=== PATIENT | female | born 1960 | race Two or more races ===

== ENCOUNTER 2024-09-29 06:30 | Day surgery (SDC) | payer BC, SELFPAY ==
--- NOTE | 2024-09-26 07:00 | EKG_ITS ---
[facility] Test Date: 2024-09-26 Pat Name: JAZLYN HAAS Department: Room: - Gender: Female Banquet Director: RT STUDENT : 1960 Requested By: Cinthia Ho Order Number: [id number] Reading MD: Cinthia Ho Measurements Intervals Butler Rate: 79 P: 35 AR: 162 QRS: 37 QRSD: 100 T: 31 QT: 382 QTc: 440 Interpretive Statements SINUS RHYTHM LOW QRS VOLTAGE IN PRECORDIAL LEADS [QRS DEFLECTION < 1.0 mV IN CHEST LEADS] POSSIBLE ANTERIOR MYOCARDIAL INFARCTION , OF INDETERMINATE AGE [30 ms Q WAVE IN V3/V4, OR R < 0.2 mV IN V4] No previous ECG available for comparison /[id number]
[2024-09-26 09:28] VITALS: BMI 32.5
[2024-09-29] VITALS (10 sets, daily range): BP systolic 103–132; BP diastolic 53–73; PULSE 65–78; RESP 11–20; TEMP 36.2–36.3; O2SAT 94–99; BMI 35.2
[2024-09-29 07:41] LABS: Basophils # (Auto) 0.1 Thou/mm3 (0.0-0.2); Basophils % (Auto) 1 % (0-2.5); Eosinophils # (Auto) 0.3 Thou/mm3 (0.0-0.5); Eosinophils % (Auto) 4 % (0-10); Hematocrit 36.5 % (36.0-46.0); Hemoglobin 12.2 g/dL (12.0-16.0); Immature Granulocytes % (Auto) 0 % (0-0); Immature Granulocytes Auto 0.02 Thou/mm3 (0.00-0.00); Lymphocytes # (Auto) 3.6 Thou/mm3 (1.0-4.8); Lymphocytes % (Auto) 46 % (10-50); Mean Corpuscular HGB Conc 33.4 g/dl (31.0-37.0); Mean Corpuscular Hemoglobin 31.4 pg (25.0-35.0); Mean Corpuscular Volume 94 fL (80-100); Monocytes % (Auto) 13 % (0-12); Neutrophils # (Auto) 2.8 Thou/mm3 (1.8-7.7); Neutrophils % (Auto) 36 % (37-80); Nucleated Red Blood Cell % 0 /100 WBC (0); Platelet Count 312 Thou/mm3 (140-440); RDW Standard Deviation 41.7 fL (36.4-46.3); Red Blood Count 3.89 Miln/mm3 (4.00-5.20); White Blood Count 7.8 Thou/mm3 (3.6-11.0)
[2024-09-29 07:44] LABS: Anion Gap 7 (7-16); BUN/Creatinine Ratio 14 Ratio (12-20); Blood Urea Nitrogen 11 mg/dL (9-23); Calcium 9.1 mg/dL (8.3-10.6); Carbon Dioxide 28.2 mMol/L (20.0-31.0); Chloride 104 mMol/L (98-107); Creatinine (Component) 0.8 mg/dL (0.6-1.3); Estimated Creatinine Clearance 67.3 mL/min (>60); Glucose 126 mg/dL (74-106); Osmolality,Calculated 278 (275-295); Potassium 3.9 mMol/L (3.4-5.1); Sodium 139 mMol/L (136-145); eGFR > 60 See Note
[2024-09-29 08:37] LABS: INR 0.9 (0.9-1.3); Partial Thromboplastin Time 21.9 Seconds (22.0-36.0); Prothrombin Time 10.2 Seconds (9.0-12.2)
[2024-09-29] MEDS: HYDROcodone/APAP 5/325 TABLET 1 TAB PO (08:50)
--- NOTE | 2024-10-01 16:03 | ESOP_ITS ---
RE: JAZLYN HAAS : 1960 DATE OF OPERATION: 09/29/2024 PROCEDURE PERFORMED: 1. Diagnostic right and left heart cardiac catheterization, selective coronary angiogram, left ventricular angiogram, CPT 71316. 2. Ultrasound-guided access, right radial artery. 3. Conscious sedation for 30-minute duration. DIAGNOSES: Cardiomyopathy, congestive heart failure, angina pectoris, abnormal stress test, shortness of breath. HISTORY AND INDICATIONS: The patient is a 64-year-old female with a past medical history of hypertension, fibromyalgia, hypercholesterolemia, has been having recurrent shortness of breath, severe shortness of breath with minimal exertion, chest tightness. Cardiac stress test and nuclear scan is abnormal. Also evidence of possible pulmonary hypertension right and left heart catheterization. Coronary angiogram is recommended to assess the patient is a candidate for coronary intervention and revascularization. DESCRIPTION OF PROCEDURE: The patient was brought to cardiac catheterization laboratory where she was given 2 mg Versed and 100 mcg of fentanyl for sedation. The right radial approach was taken for left heart catheterization. The right radial artery was cannulated with micropuncture technique and a 6-[place] Glidesheath was introduced. The right femoral vein was cannulated by micropuncture technique and a 7-[place] sheath was introduced. Right heart catheterization was performed with Redby-Hussain catheter. Right heart pressures were measured. Left heart catheterization performed by 5-[place] TIG-4 diagnostic catheter. Left ventricular pressure was measured. Selective coronary angiogram performed by 5- [place] TIG-4 diagnostic catheter. The patient tolerated the procedure well. No complications. Cardiac catheterization showed following findings: Right heart catheterization showed following findings: HEMODYNAMICS: Right atrial pressure was 10 mmHg, right ventricle pressure was 25/5 mmHg, EDP 10, pulmonary artery pressure 22/9 mmHg, PA wedge mean pressure 15, pulmonary artery wedge pressure 10 mmHg. Left ventricular pressure 103/4, EDP 19, aortic pressure 130/70. No gradient across the aortic valve. Left ventricular angiogram showed normal left ventricular wall motion, ejection fraction 70%. Coronary angiogram showed following findings. Right coronary artery is large and dominant, appear normal. PDA and PL branches are normal. Left coronary system: Left main coronary artery is normal. Left anterior descending artery is normal. Circumflex artery is normal. SUMMARY OF FINDINGS AND SUGGESTIONS: 1. Normal nonobstructive epicardial coronary arteries. 2. Normal left ventricular function. Ejection fraction is 30%. RECOMMENDATIONS: The patient was reassured about the absence of significant coronary artery disease. No evidence of pulmonary hypertension. Progress is excellent in absence of significant obstructive coronary artery disease. DT: 08:34:21 TT: 11:43:00 Ref: [id number] - TID: [id number]
== END 2024-09-29 11:30 | disposition home or self-care (01) ==
LOC: SCCL 06:31
PROVIDERS: PCP Family Medicine; Referring Provider Internal Medicine Cardiovascular Disease; Visit Provider Internal Medicine Cardiovascular Disease
PROC: (CPT 93460; principal; 2024-09-29 07:30)
DX: I42.9 Cardiomyopathy, unspecified (principal); I20.89 Other forms of angina pectoris; I50.9 Heart failure, unspecified; I11.0 Hypertensive heart disease with heart failure; E78.00 Pure hypercholesterolemia, unspecified; M79.7 Fibromyalgia; Z01.810 Encounter for preprocedural cardiovascular examination
CPT/HCPCS: 93460; 36415; 80048; 85025; 85610; 85730; 93005; 99152; 99153; A4649; C1769; C1887; C1894; J0171; J0461; J1643; J2250; J2310; J2371; J3010; J3490; A9270; J2305

== ENCOUNTER → 2024-12-31 | Outpatient (CLI) | payer BC, SELFPAY ==
[2024-12-31 10:59] LABS: Basophils # (Auto) 0.1 Thou/mm3 (0.0-0.2); Basophils % (Auto) 1 % (0-2.5); Eosinophils # (Auto) 0.2 Thou/mm3 (0.0-0.5); Eosinophils % (Auto) 2 % (0-10); Hematocrit 40.4 % (36.0-46.0); Hemoglobin 13.5 g/dL (12.0-16.0); Immature Granulocytes % (Auto) 1 % (0-0); Immature Granulocytes Auto 0.06 Thou/mm3 (0.00-0.00); Lymphocytes # (Auto) 2.8 Thou/mm3 (1.0-4.8); Lymphocytes % (Auto) 34 % (10-50); Mean Corpuscular HGB Conc 33.4 g/dl (31.0-37.0); Mean Corpuscular Hemoglobin 31.9 pg (25.0-35.0); Mean Corpuscular Volume 96 fL (80-100); Monocytes # (Auto) 0.7 Thou/mm3 (0.0-0.8); Monocytes % (Auto) 9 % (0-12); Neutrophils # (Auto) 4.3 Thou/mm3 (1.8-7.7); Neutrophils % (Auto) 53 % (37-80); Nucleated Red Blood Cell % 0 /100 WBC (0); Platelet Count 350 Thou/mm3 (140-440); RDW Standard Deviation 42.1 fL (36.4-46.3); Red Blood Count 4.23 Miln/mm3 (4.00-5.20)
[2024-12-31 11:12] LABS: T4 (Thyroxine) 7.8 mcg/dL (4.5-10.9)
[2024-12-31 11:14] LABS: Alanine Aminotransferase 31 U/L (10-49); Albumin, Serum 4.6 gm/dL (3.4-4.8); Albumin/Globulin Ratio 1.6 (1.2-2.2); Alkaline Phosphatase 87 U/L (46-116); Anion Gap 5 (7-16); Aspartate Amino Transferase 24 U/L (0-34); BUN/Creatinine Ratio 13 Ratio (12-20); Bilirubin,Total 0.3 mg/dL (0.3-1.2); Blood Urea Nitrogen 12 mg/dL (9-23); Cardiac Risk Estimate 3.7 RATIO (3.7-5.6); Chloride 104 mMol/L (98-107); Cholesterol 251 mg/dL (132-200); Creatinine (Component) 0.9 mg/dL (0.6-1.3); Globulin 2.9 gm/dL (2.3-3.5); Glucose 145 mg/dL (74-106); HDL Cholesterol 68 mg/dL (40-60); LDL Cholesterol,Calculated 126 mg/dL (0-130); Osmolality,Calculated 283 (275-295); Potassium 4.8 mMol/L (3.4-5.1); Sodium 141 mMol/L (136-145); Thyroid Stimulating Hormone 1.78 uIU/mL (0.55-4.78); Total Protein 7.5 gm/dL (5.7-8.2); Triglycerides 285 mg/dL (30-150); eGFR > 60 See Note
== END | disposition home or self-care (01) ==
PROVIDERS: PCP Family Medicine; Referring Provider Family Medicine; Visit Provider Family Medicine
DX: E78.5 Hyperlipidemia, unspecified (principal); E83.52 Hypercalcemia; I10 Essential (primary) hypertension; R06.09 Other forms of dyspnea
CPT/HCPCS: 36415; 80053; 80061; 83970; 84436; 84443; 85025

== ENCOUNTER → 2025-04-30 | Outpatient (CLI) | payer MEDICARE, BC, SELFPAY ==
--- NOTE | 2025-04-30 13:17 | XR_ITS ---
EXAMINATION: PA lateral chest 2 views TECHNIQUE: Upright PA lateral chest 2 views Date and time: April 30, 2025, 1327 hours INDICATIONS: Shortness of breath nausea vomiting 3 years FINDINGS: Normal heart size Lungs are clear. Osseous structures are intact IMPRESSION: No active disease
[2025-04-30 14:38] LABS: Basophils # (Auto) 0.1 Thou/mm3 (0.0-0.2); Basophils % (Auto) 1 % (0-2.5); Eosinophils # (Auto) 0.1 Thou/mm3 (0.0-0.5); Eosinophils % (Auto) 2 % (0-10); Hematocrit 40.2 % (36.0-46.0); Hemoglobin 13.4 g/dL (12.0-16.0); Immature Granulocytes Auto 0.03 Thou/mm3 (0.00-0.00); Lymphocytes # (Auto) 3.1 Thou/mm3 (1.0-4.8); Lymphocytes % (Auto) 34 % (10-50); Mean Corpuscular HGB Conc 33.3 g/dl (31.0-37.0); Mean Corpuscular Hemoglobin 31.0 pg (25.0-35.0); Mean Corpuscular Volume 93 fL (80-100); Monocytes # (Auto) 0.7 Thou/mm3 (0.0-0.8); Monocytes % (Auto) 7 % (0-12); Neutrophils # (Auto) 5.1 Thou/mm3 (1.8-7.7); Neutrophils % (Auto) 56 % (37-80); Nucleated Red Blood Cell # 0.00 Thou/mm3 (0.00-0.00); Nucleated Red Blood Cell % 0 /100 WBC (0); Platelet Count 345 Thou/mm3 (140-440); RDW Standard Deviation 41.5 fL (36.4-46.3); Red Blood Count 4.32 Miln/mm3 (4.00-5.20); White Blood Count 9.1 Thou/mm3 (3.6-11.0)
[2025-04-30 14:59] LABS: Alanine Aminotransferase 38 U/L (10-49); Albumin, Serum 4.6 gm/dL (3.4-4.8); Albumin/Globulin Ratio 1.5 (1.2-2.2); Alkaline Phosphatase 101 U/L (46-116); Anion Gap 10 (7-16); Aspartate Amino Transferase 39 U/L (0-34); BUN/Creatinine Ratio 6 Ratio (12-20); Bilirubin,Total 0.3 mg/dL (0.3-1.2); Blood Urea Nitrogen 6 mg/dL (9-23); Calcium 9.5 mg/dL (8.3-10.6); Calcium (Corrected) 9.5 mg/dL (8.5-10.1); Carbon Dioxide 28.8 mMol/L (20.0-31.0); Chloride 99 mMol/L (98-107); Creatinine (Component) 1.0 mg/dL (0.6-1.3); Free T4 (Free Thyroxine) 1.25 ng/dL (0.89-1.76); Globulin 3.0 gm/dL (2.3-3.5); Glucose 202 mg/dL (74-106); Osmolality,Calculated 279 (275-295); Potassium 3.9 mMol/L (3.4-5.1); Sodium 138 mMol/L (136-145); Thyroid Stimulating Hormone 1.30 uIU/mL (0.55-4.78); Total Protein 7.6 gm/dL (5.7-8.2); Vitamin D 25 Hydroxy Total 26.3 ng/mL (7.3-40.2); eGFR > 60 See Note
[2025-05-01 11:57] LABS: Cocci Serology, IgM Negative (Negative)
[2025-05-04 14:17] LABS: Cocci Serology, IgG Negative (Negative)
[2025-05-06 06:52] LABS: ACTH, Plasma* 8 pg/mL (6-50); Renin Activity, Plasma* 42.22 ng/mL/h (0.25-5.82)
[2025-05-08 17:47] LABS: Thyroglobulin Antibodies <1 IU/mL (< OR = 1)
[2025-05-11 06:36] LABS: Aldosterone* 2 ng/dL; Cortisol,total,LC/MS/MS* 7.5 mcg/dL; Prolactin* 7.7 ng/mL; T3,Total* 108 ng/dL (76-181); Thyroglobulin 4.8 ng/mL; Thyroid Peroxidase Antibodies* <1 IU/mL (<9)
== END | disposition home or self-care (01) ==
LOC: SDIM 13:12 → COPL 13:42
PROVIDERS: PCP Family Medicine; Referring Provider Nurse Practitioner Family; Visit Provider Radiology Diagnostic Radiology
DX: R06.02 Shortness of breath (principal); E27.9 Disorder of adrenal gland, unspecified; R53.83 Other fatigue; E23.7 Disorder of pituitary gland, unspecified
CPT/HCPCS: 36415; 71046; 80053; 82024; 82088; 82306; 82533; 84146; 84244; 84432; 84439; 84443; 84480; 85025; 86331; 86376; 86635; 86800

== ENCOUNTER → 2025-07-03 | Outpatient (CLI) | payer MEDICARE, SELFPAY ==
[2025-07-03 10:40] LABS: Alanine Aminotransferase 53 U/L (10-49); Albumin, Serum 4.6 gm/dL (3.4-4.8); Albumin/Globulin Ratio 1.5 (1.2-2.2); Alkaline Phosphatase 111 U/L (46-116); Anion Gap 12 (7-16); Aspartate Amino Transferase 50 U/L (0-34); BUN/Creatinine Ratio 9 Ratio (12-20); Bilirubin,Total 0.2 mg/dL (0.3-1.2); Blood Urea Nitrogen 7 mg/dL (9-23); Calcium 9.6 mg/dL (8.3-10.6); Calcium (Corrected) 9.6 mg/dL (8.5-10.1); Carbon Dioxide 26.9 mMol/L (20.0-31.0); Chloride 102 mMol/L (98-107); Creatinine (Component) 0.8 mg/dL (0.6-1.3); Globulin 3.1 gm/dL (2.3-3.5); Glucose 218 mg/dL (74-106); Magnesium 1.8 mg/dL (1.6-2.6); Osmolality,Calculated 286 (275-295); Potassium 3.8 mMol/L (3.4-5.1); Sodium 141 mMol/L (136-145); Total Protein 7.7 gm/dL (5.7-8.2); eGFR > 60 See Note
[2025-07-03 10:43] LABS: Ferritin 278 ng/mL (7.3-270.7); Iron 78 mcg/dL (50-170); Percent Iron Saturation 25 % (20-55); Total Iron Binding Capacity 302 mcg/dL (250-425); Unsaturated Iron Binding 224 (225-295)
[2025-07-03 10:52] LABS: Folate > 24.00 ng/mL (>5.38); Vitamin B12 > 2000 pg/mL (211-911); Vitamin D 25 Hydroxy Total 53.8 ng/mL (7.3-40.2)
[2025-07-08 08:46] LABS: Vitamin B6, Plasma* 21.6 ng/mL (2.1-21.7)
[2025-07-08 08:47] LABS: ACTH, Plasma* 15 pg/mL (6-50)
[2025-07-14 06:29] LABS: Cortisol,total,LC/MS/MS* 11.3 mcg/dL; Zinc, Plasma* 100 mcg/dL (60-130)
== END | disposition home or self-care (01) ==
PROVIDERS: PCP Family Medicine; Referring Provider Nurse Practitioner Family; Visit Provider Nurse Practitioner Family
DX: E27.9 Disorder of adrenal gland, unspecified (principal); R53.83 Other fatigue
CPT/HCPCS: 36415; 80053; 82024; 82306; 82533; 82607; 82728; 82746; 83540; 83550; 83735; 84207; 84630; 85025